=== PATIENT | female | born 1960 ===

== ENCOUNTER 2024-05-23 11:11 | Day surgery (SDC) | payer OTHER ==
[~2024-05-23] VITALS: Ht 162.6 cm; Wt 70.8 kg
[2024-05-23] MEDS ORDERED: fentaNYL citrate 0.05 MG/ML VIAL ONE (17:35)
[2024-05-23] MEDS: fentaNYL citrate 0.05 MG/ML VIAL IVP ONE (18:04)
[2024-05-23] MEDS: LIDOCAINE 2% 100 MG/5 ML UJET TP ONE (18:13)
[2024-05-23] MEDS ORDERED: MIDAZOLAM 2 MG/2 ML VIAL ONE (18:19)
[2024-05-23] MEDS: MIDAZOLAM 2 MG/2 ML VIAL IVP ONE (18:20)
== END 2024-05-23 19:15 | disposition home or self-care (01) ==
LOC: MDS 11:11 → MMU 11:12 → MDS 19:15
PROVIDERS: ATTEND Internal Medicine Gastroenterology
DX: Z12.11 Encounter for screening for malignant neoplasm of colon (principal); E11.9 Type 2 diabetes mellitus without complications; Z85.528 Personal history of other malignant neoplasm of kidney; Z85.850 Personal history of malignant neoplasm of thyroid; Z90.710 Acquired absence of both cervix and uterus; Z79.4 Long term (current) use of insulin; Z79.899 Other long term (current) drug therapy
CPT/HCPCS: 45378; 82948; J2250; J3010